=== PATIENT | female | born 1960 | race Caucasian/White ===

== ENCOUNTER → 2017-07-28 | Outpatient (CLI) | payer OTHER ==
--- NOTE | 2017-07-29 10:36 | RADIOLOGY IMAGING REPORT ---
FACILITY: PATIENT NAME: KAYLYNN GOMEZ : [id number] MR: [id number] V: [id number] EXAM DATE: [id number] ORDERING PHYSICIAN: ARNOLDO FLANAGAN TECHNOLOGIST: Zaina Polo PROCEDURE:BILATERAL DIGITAL SCREENING MAMMOGRAM WITH CAD ASSISTED INTERPRETATION & 3D TOMOSYNTHESIS COMPARISON:Prior mammograms dated 05/14/16, 04/26/16, 04/04/15, 03/16/14, 03/12/13 INDICATIONS:screening FINDINGS: A small amount of fibroglandular tissue is seen throughout the breasts. The parenchymal pattern has remained stable allowing for difference in mammographic technique & patient positioning. There is no evidence of malignant appearing mass, malignant appearing calcification or other secondary sign of malignancy in either breast. DIAGNOSTIC CATEGORY 1--NEGATIVE. RECOMMENDATIONS: ROUTINE MAMMOGRAM AND CLINICAL EVALUATION. IMPRESSION: BIRADS 1: Negative. No significant abnormality is seen. Dictated by: Alondra Casey M.D. on 07/28/2017 at 17:15 Transcribed by: LILIBETH on 07/29/2017 at 8:51 Approved by: Alondra Casey M.D. on 07/29/2017 at 10:35 [facility]
== END ==
LOC: MAMO 02:01
PROVIDERS: ATTEND Family Medicine
DX: Z12.31 Encounter for screening mammogram for malignant neoplasm of breast (principal)
CPT/HCPCS: 77063; 77067

== ENCOUNTER 2018-01-07 01:25 | Day surgery (SDC) | payer OTHER ==
[~2018-01-07] VITALS: Ht 165.1 cm; Wt 92.1 kg
[~2018-01-07 01:25] MED LIST: ASPI-1471 PO; CHOL10005 PO; CYAN1TAB68 PO; FLAX100041 PO; MULT-19; MULT-768 PO; OMEG-11 PO; ROSU10TA5
[2018-01-07] MEDS ORDERED: NORMOSOL R SOLN(*) 1000 ML BAG 1,000 ML IV PRN (07:10)
[2018-01-07] MEDS ORDERED: LIDOCAINE/SOD BICARB 8.4% SYR ID ONE (07:10)
[2018-01-07 08:45] VITALS: BP 125/85
[2018-01-07 09:57] VITALS: BP 109/72
--- NOTE | 2018-01-07 10:09 | Short(Outpt) Discharge Summary ---
Discharge Summary Reason for Hosp/Final Diag: (1) Family history of colorectal cancer Hospital Course & Plan: Colonoscopy with polypectomy x1 completed without problems. Departure Discharge to: Home, Self Care Discharge Instructions Home Meds Reported Medications Aspirin (ASPIR 81) 81 Mg Tablet.dr, 81 MG PO QDAY, TAB 12/25/17 Cyanocobalamin/Folic Acid (VITAMIN T47-VUXBZ ACID TABLET) 1 Each Tablet, 1 EACH PO 12/25/17 Cholecalciferol (Vitamin D3) (VITAMIN D3) 1,000 Unit Tablet, 2000 UNIT PO, TAB 12/25/17 [place]-3 Fatty Acids/Fish Oil (FISH OIL 1,000 MG CAPSULE) 1 Each Capsule, 1 EACH PO, CAPSULE 12/25/17 Flaxseed Oil (FLAX SEED OIL) 1,000 Mg Capsule, 1000 MG PO, CAPSULE 12/25/17 Multivits-Min/Iron/FA/Lutein (Centrum Silver Women Tablet) 1 Each Tablet 12/25/17 Rosuvastatin Calcium (Rosuvastatin Calcium) 10 Mg Tablet 12/11/17 Diet: Regular Activity: As Tolerated Special Instructions: Your colonoscopy was completed without any problems and your prep was excellent (Good Job!!). I removed a single small polyp from your colon and it was sent to pathology. My office will call you in the next week or so and let you know what the polyp is, but in any case, your next colonoscopy should be in 5 years due to your family history of colon cancer. ADOLFO PINZON MD Jan 07, 2018 10:09
[2018-01-07 10:29] VITALS: BP 119/88
[2018-01-07 10:31] VITALS: BP 117/93
[2018-01-07] MEDS ORDERED: LIDOCAINE MPF 1% 5 ML VIAL ONE (11:21)
[2018-01-07] MEDS ORDERED: PROPOFOL EMUL(*) 10MG/ML 20 ML 60 ML ONE (11:21)
== END 2018-01-07 10:55 | disposition home or self-care (01) ==
LOC: OR 01:25
PROVIDERS: ATTEND Surgery
DX: Z12.11 Encounter for screening for malignant neoplasm of colon (principal); D12.3 Benign neoplasm of transverse colon; Z80.0 Family history of malignant neoplasm of digestive organs
CPT/HCPCS: 00811; 45385; 88305; J2001; J2704

== ENCOUNTER → 2018-07-30 | Outpatient (CLI) | payer OTHER ==
--- NOTE | 2018-07-31 14:13 | RADIOLOGY IMAGING REPORT ---
[place] [facility] [place] KAYLYNN GOMEZ : [id number] MR: [id number] V: [id number] EXAM DATE: [id number] ORDERING PHYSICIAN: ARNOLDO FLANAGAN TECHNOLOGIST: Elizabeth Lynch PROCEDURE: BILATERAL DIGITAL SCREENING MAMMOGRAM WITH CAD ASSISTED INTERPRETATION & 3D TOMOSYNTHESIS REASON FOR STUDY: Screening FAMILY HISTORY OF BREAST CANCER: None BREAST PROCEDURES/TREATMENTS: None COMPARISON: 07/28/17, 05/14/16, 04/26/16, 04/04/15, 03/16/14 VIEWS OBTAINED: Bilateral 2D & 3D full field CC & MLO BREAST DENSITY: There are scattered areas of fibroglandular density throughout both breasts. MAMMOGRAM FINDINGS: The parenchymal pattern has remained stable allowing for differences in mammographic technique & patient positioning. ASSESSMENT: BIRADS 1: Negative. DIAGNOSTIC CATEGORY 1--NEGATIVE. RECOMMENDATIONS: ROUTINE MAMMOGRAM AND CLINICAL EVALUATION. Dictated by: Alondra Casey M.D. on 07/30/2018 at 8:41 Transcribed by: LILIBETH on 07/31/2018 at 10:16 Approved by: Alondra Casey M.D. on 07/31/2018 at 14:12 [facility]
== END ==
LOC: MAMO 00:21
PROVIDERS: ATTEND Family Medicine
DX: Z12.31 Encounter for screening mammogram for malignant neoplasm of breast (principal)
CPT/HCPCS: 77063; 77067